=== PATIENT | female | born 1980 | race Caucasian/White ===

== ENCOUNTER 2016-11-18 04:01 | Emergency (ER) | payer BC, OTHER ==
--- NOTE | 2016-11-18 06:20 | ER Document Report ---
ED GI/ - General Time seen by provider: 07:45 Mode of Arrival: Ambulatory Information source: Patient TRAVEL OUTSIDE OF THE [place] IN LAST 30 DAYS: No - HPI Patient complains to provider of: Flank pain, Vomiting Onset: Other - see HPI note Associated symptoms: Nausea, Urinary retention, Vomiting Similar symptoms previously: No Recently seen / treated by doctor: No - General Chief Complaint: Possible Kidney Stone Stated Complaint: ABDOMINAL PAIN, NAUSEA Notes: Patient is a 36-year-old female presenting to the emergency department for right flank pain. Patient states her pain started around 2200 last night. Patient states she is has a history of kidney stones, but has not had any symptoms 8 years ago when she was . Patient states she has had some urinary retention as well. Patient also has had some nausea and vomiting, but denies any diarrhea or fevers. Patient states that she does drink a lot of soda. Patient states she takes Zoloft and lisinopril. Patient's primary care physician is Ann Marie Lindo. Patient is allergic to sulfa drugs. (GRISEL GRIGSBY) - Related Data Allergies/Adverse Reactions: Sulfa (Sulfonamide Antibiotics) Allergy (Verified 11/19/16 19:33) Past Medical History - General Information source: Patient - Social History Smoking Status: Unknown if Ever Smoked Family History: None Patient has suicidal ideation: No Patient has homicidal ideation: No - Past Medical History Cardiac Medical History: Reports: Hx Hypertension Psychiatric Medical History: Reports: Hx Anxiety Past Surgical History: Reports: Hx Cholecystectomy - Immunizations Hx Diphtheria, Pertussis, Tetanus Vaccination: Yes Review of Systems - Review of Systems Constitutional: No symptoms reported EENT: No symptoms reported Cardiovascular: No symptoms reported Respiratory: No symptoms reported Gastrointestinal: See HPI, Nausea, Vomiting Genitourinary: See HPI, Flank pain, Retention Female Genitourinary: No symptoms reported Musculoskeletal: No symptoms reported Skin: No symptoms reported Hematologic/Lymphatic: No symptoms reported Neurological/Psychological: No symptoms reported -: Yes All other systems reviewed and negative Physical Exam - Vital signs Interpretation: Normal - General General appearance: Appears well, Alert In distress: Mild - HEENT Head: Normocephalic, Atraumatic Eyes: Normal Pupils: PERRL Mucous membranes: Moist - Respiratory Respiratory status: No respiratory distress Chest status: Nontender Breath sounds: Normal Chest palpation: Normal - Cardiovascular Rhythm: Regular Heart sounds: Normal auscultation Murmur: No - Abdominal Inspection: Normal Distension: No distension Bowel sounds: Normal Tenderness: Nontender Organomegaly: No organomegaly - Back Back: Normal, Tender - Right flank tenderness to palpation - Extremities General upper extremity: Normal inspection, Normal ROM, Normal strength General lower extremity: Normal inspection, Normal ROM, Normal strength - Neurological Neuro grossly intact: Yes Cognition: Normal Orientation: AAOx4 [place] Coma Scale Eye Opening: Spontaneous [place] Coma Scale Verbal: Oriented [place] Coma Scale Motor: Obeys Commands [place] Coma Scale Total: 15 Speech: Normal - Psychological Associated symptoms: Normal affect, Normal mood - Skin Skin Temperature: Warm Skin Moisture: Dry Course - Re-evaluation Re-evalutation: 11/26/16 02:35 patient presents the emergency approaching back pain. she has a long-standing history of kidney stones in this particular one fell similar. it is not the worst episode she's ever had. she has no associated vomiting or diarrhea fevers chills hypotension tachycardia or signs and sepsis. at this time she's getting treated for kidney stone close pcp follow-up and discuss reasons for you to return sooner (DESIREE SERNA) - Vital Signs Vital signs: Temp Pulse Resp BP Pulse Ox 98.6 F 81 16 127/76 H 100 11/18/16 07:55 11/18/16 10:41 11/18/16 10:41 11/18/16 10:41 11/18/16 10:41 - Laboratory Laboratory results interpreted by me: 11/18/16 06:10 Urine Blood SMALL H Discharge - Discharge Clinical Impression: acute recurrent nephrolithiasis Condition: Stable Disposition: HOME, SELF-CARE Additional Instructions: Kidney Stone You are passing or have passed a kidney stone. These stones are usually due to increased calcium or uric acid concentrations in your urine. Stones within the kidney itself are not painful. The pain occurs as the stone leaves the kidney to pass down the long tube, called the ureter, leading to the bladder. If the stone is small, it will usually pass by itself. Most patients can pass the stone at home. You will usually receive medications for pain, nausea or vomiting, and sometimes a medication to assist in passing the kidney stone. However, if the pain is very severe or if vomiting prevents you from taking oral pain medications, you may need to return for further treatment. Drink three or four quarts of fluids per day. You will be given pain medication (if needed) and urine strainers. Strain all your urine to see if the stone passes. If your doctor has asked you to bring the stone in for analysis, return with the stone once it has passed. Return if pain or vomiting become severe, if you develop a high fever, if you are unable to pass your urine, or if other unusual symptoms occur. Referrals: ANN MARIE LINDO, BIOMEDICAL EQUIPMENT SPECIALIST-C [Primary Care Provider] - (In 2-3 days return for increasing worsening or new symptoms) Scribe Attestation: 11/18/16 10:31 I personally performed the services described in the documentation reviewed the documentation recorded by my scribe in my presence and it accurately and completely records my words and actions (DESIREE SERNA) Scribe Documentation - Scribe Written by Scrjae:: Grisel Grigsby 11/18/16 12:50 acting as scribe for :: Dom
[2016-11-18 06:40] LABS: URINE BARBITURATES SCREEN NEGATIVE; URINE METHADONE SCREEN NEGATIVE; URINE OPIATES LOW NEGATIVE; URINE PHENCYCLIDINE SCREEN NEGATIVE
[2016-11-18 06:48] LABS: AMORPHOUS SEDIMENT,URINE TRACE /HPF; BILIRUBIN,URINE NEGATIVE (NEGATIVE); GLUCOSE, URINE NEGATIVE (NEGATIVE); KETONES,URINE NEGATIVE (NEGATIVE); LEUKOCYTE ESTERASE,URINE NEGATIVE (NEGATIVE); NITRITE,URINE NEGATIVE (NEGATIVE); PROTEIN,URINE NEGATIVE (NEGATIVE); URINE SPECIFIC GRAVITY 1.017; UROBILINOGEN,URINE NEGATIVE mg/dL (<2.0)
[2016-11-18 07:03] LABS: APPEARANCE,URINE SLIGHTLY-CLOUDY
[2016-11-18] MEDS ORDERED: KETOROLAC TROMETHAMINE 60 MG/2 ML SDV IM ONE (07:25)
[2016-11-18] MEDS ORDERED: OXYCODONE-ACETAMINOPHEN 5-325 MG TABLET PO ONE (07:26)
[2016-11-18] MEDS ORDERED: ONDANSETRON 4 MG TAB.RAPDIS PO ONE (10:32)
[2016-11-18 10:44] VITALS: BP 127/76
== END 2016-11-18 10:41 | disposition home or self-care (01) ==
LOC: ER 04:01
DX: N20.0 Calculus of kidney (principal); R10.9 Unspecified abdominal pain; R11.2 Nausea with vomiting, unspecified; Z79.899 Other long term (current) drug therapy
CPT/HCPCS: 99284; 96372; 81025; 81001; 80307; 74176; J1885; S0119

== ENCOUNTER 2016-11-19 17:18 | Inpatient (IN) | payer OTHER ==
[2016-11-19] MEDS ORDERED: ONDANSETRON HCL INJ/PF 4 MG/2 ML SDV IV ONE (19:38)
[2016-11-19] MEDS ORDERED: HYDROCODONE/ACETAMINOPHEN 5-325 MG TABLET PO ONE (19:39)
[2016-11-19] MEDS ORDERED: KETOROLAC TROMETHAMINE INJ/PF 30 MG/1 ML SDV IV ONE (19:39)
[2016-11-19] MEDS ORDERED: NORMAL SALINE 1000 ML 1,000 ML IV ONE (19:41)
--- NOTE | 2016-11-19 19:41 | ER Document Report ---
ED Medical Screen (RME) - General Chief Complaint: Flank Pain Stated Complaint: FEVER Mode of Arrival: Ambulatory Information source: Patient Notes: 36-year-old female who was diagnosed as kidney stone yesterday presents with complaints of fever today temp was noted to be 104.1F home noted to be febrile on arrival. Patient notes pain is much better than yesterday. Patient noted to have 1 mm nonobstructing stone on CT Urinalysis did not note any acute abnormality yesterday concerning for infectious process I have greeted and performed a rapid initial assessment of this patient. A comprehensive ED assessment and evaluation of the patient, analysis of test results and completion of the medical decision making process will be conducted by additional ED providers. PHYSICAL EXAMINATION: GENERAL: Well-appearing, well-nourished and in no acute distress. Febrile HEAD: Atraumatic, normocephalic. EYES: Pupils equal round extraocular movements intact, conjunctiva are normal. ENT: Nares patent NECK: Normal range of motion LUNGS: No respiratory distress Musculoskeletal: Normal range of motion mild right CVA tenderness NEUROLOGICAL: Normal speech, normal gait. PSYCH: Normal mood, normal affect. SKIN: Warm, Dry, normal turgor, no rashes or lesions noted. TRAVEL OUTSIDE OF THE [place] IN LAST 30 DAYS: No - Related Data Allergies/Adverse Reactions: Sulfa (Sulfonamide Antibiotics) Allergy (Verified 11/19/16 19:33) Past Medical History - Past Medical History Cardiac Medical History: Reports: Hx Hypertension Renal/ Medical History: Denies: Hx Peritoneal Dialysis Psychiatric Medical History: Reports: Hx Anxiety Past Surgical History: Reports: Hx Cholecystectomy - Immunizations Hx Diphtheria, Pertussis, Tetanus Vaccination: Yes
[2016-11-19 20:39] LABS: ABSOLUTE MONOCYTES (AUTO) 0.9 10^3/uL (0.1-1.4); ABSOLUTE NEUT (AUTO) 10.1 10^3/uL (1.7-8.2); BASOPHILS % (AUTO) 0.3 % (0-2); EOSINOPHILS % (AUTO) 0.2 % (0-6); HEMATOCRIT 39.1 % (36.0-47.0); HEMOGLOBIN 13.3 g/dL (12.0-15.5); HGB HCT DIFFERENCE 0.8; MEAN CORPUSCULAR HEMOGLOBIN 30.9 pg (27.0-33.4); MEAN CORPUSCULAR HGB CONC 34.1 g/dL (32.0-36.0); MEAN CORPUSCULAR VOLUME 91 fl (80-97); MONOCYTES % (AUTO) 7.3 % (3-13); RED BLOOD COUNT 4.31 10^6/uL (3.72-5.28); RED CELL DISTRIBUTION WIDTH 12.7 % (11.5-14.0); SEGMENTED NEUTROPHILS % (AUTO) 84.2 % (42-78); WHITE BLOOD COUNT 11.9 10^3/uL (4.0-10.5)
[2016-11-19 20:54] LABS: ALANINE AMINOTRANSFERASE 75 U/L (9-52); ALBUMIN 4.4 g/dL (3.5-5.0); ALKALINE PHOSPHATASE 71 U/L (38-126); ANION GAP 13 (5-19); ASPARTATE AMINO TRANSFERASE 44 U/L (14-36); BILIRUBIN,DIRECT 0.1 mg/dL (0.0-0.4); BILIRUBIN,TOTAL 0.8 mg/dL (0.2-1.3); BLOOD UREA NITROGEN 7 mg/dL (7-20); CALCIUM 9.1 mg/dL (8.4-10.2); CARBON DIOXIDE 26 mmol/L (22-30); CHLORIDE 99 mmol/L (98-107); CREATININE RESULT 0.64 mg/dL (0.52-1.25); GLUCOSE 102 mg/dL (75-110); POTASSIUM 3.5 mmol/L (3.6-5.0); SODIUM 137.8 mmol/L (137-145); TOTAL PROTEIN 7.5 g/dL (6.3-8.2)
--- NOTE | 2016-11-19 21:13 | ER Document Report ---
ED GI/ - General Chief Complaint: Flank Pain Stated Complaint: FEVER Mode of Arrival: Ambulatory Notes: Patient is a 36-year-old female presents emergency Department complaining of pain and fever. Right flank pain consitent with yesterday, has not gotten worse. Fever of 104 at home. Did not take any APAP or motrin, Patient was evaluated yesterday in the emergency department and was diagnosed with a right kidney stone. Patient states that she has not been able to keep down anything today and that the Percocet she has taken her was making throughout. States her pain is in her right flank radiating to the right groin. States that her urine has been dark in color when she is able to urinate. Last menstrual period was 2 weeks ago Past medical history significant for hypertension, anxiety Past surgical history significant for cholecystectomy and tubal ligation Social history significant for social tobacco and alcohol use. Denies any drug use. Allergies to sulfa. PCP: pranav resendez TRAVEL OUTSIDE OF THE [place] IN LAST 30 DAYS: No - Related Data Allergies/Adverse Reactions: Sulfa (Sulfonamide Antibiotics) Allergy (Verified 11/19/16 19:33) Past Medical History - General Information source: Patient - Social History Smoking Status: Unknown if Ever Smoked Family History: None - Past Medical History Cardiac Medical History: Reports: Hx Hypertension Renal/ Medical History: Denies: Hx Peritoneal Dialysis Psychiatric Medical History: Reports: Hx Anxiety Past Surgical History: Reports: Hx Cholecystectomy - Immunizations Hx Diphtheria, Pertussis, Tetanus Vaccination: Yes Review of Systems - Review of Systems Constitutional: See HPI Gastrointestinal: No symptoms reported Genitourinary: See HPI Female Genitourinary: No symptoms reported -: Yes All other systems reviewed and negative Physical Exam - Vital signs Vitals: Temp 97.5 F 11/20/16 01:42 - Notes Notes: PHYSICAL EXAM GENERAL: Alert, interacts well. HEAD: Normocephalic, atraumatic. EYES: Pupils equal, round, and reactive to light. Extraocular movements intact. ENT: Oral mucosa moist, tongue midline. NECK: Full range of motion. Supple. Trachea midline. LUNGS: Clear to auscultation bilaterally, no wheezes, rales, or rhonchi. No respiratory distress. HEART: Regular rate and rhythm. No murmurs, gallops, or rubs. ABDOMEN: Soft, nondistended, mild supra pubic tenderness on right. No guarding , rebound, or rigidity.. Bowel sounds present in all 4 quadrants. BACK: negative spinous process tenderness or paraspinous muscle tenderness. Positive CVA tenderness along right flank EXTREMITIES: Moves all 4 extremities spontaneously. No edema, radial and dorsalis pedis pulses 2/4 bilaterally. No cyanosis. NEUROLOGICAL: Alert and oriented x4. Normal speech. PSYCH: Normal affect, normal mood. SKIN: Warm, dry, normal turgor. No rashes or lesions noted. Course - Re-evaluation Re-evalutation: 11/19/16 21:15 Patient is a 36-year-old female who is hemodynamically stable, no acute distress and with a temp of 101.6. CT limited study done yesterday showed a 1 cm nonobstructing stone at the right kidney. At this time patient is resting comfortably. In triage, IVF were initiated, patient has received Toradol. CBC and BMP sent, awaiting UA 11/19/16 Labs reveal concern for possible complicated pyelonephritis. Repeating CT abdomen and pelvis with IV contrast. Blood cultures have been sent and Rocephin IV initiated. 11/19/16 21:52 CT the abdomen and pelvis with IV contrast reveals enhancement right upper pole parenchyma which can be consistent with pyelonephritis given 1 cm nonobstructing renal calculi. I have consulted [facility] for urology consult. They recommended that since the stone is nonobstructing to treat her for pyelonephritis assessment patient here in can follow-up with urology for stone removal. I was able to consult Dr. Josh Macias for hospital admission for complicated pyelonephritis. She'll be admitted to a telemetry bed for IV antibiotics, IV fluids, pain management and observation. At this time repeat vital signs are satting 98% on room air, heart rate of 103, blood pressure 116/ 63, temp of 97.5. There is no evidence that this patient is septic, and is appropriate for telemetry management. Discussed with patient results and plan and she is agreeable for admission. - Vital Signs Vital signs: Temp Pulse Resp BP Pulse Ox 97.5 F 11/20/16 01:42 - Laboratory Result Diagrams: 11/19/16 20:20 11/19/16 20:20 Laboratory results interpreted by me: 11/19/16 11/19/16 11/19/16 20:20 20:20 20:33 WBC 11.9 H Seg Neutrophils % 84.2 H Lymphocytes % 8.0 L Absolute Neutrophils 10.1 H Potassium 3.5 L AST 44 H ALT 75 H Urine Blood MODERATE H Ur Leukocyte Esterase TRACE H - Diagnostic Test Radiology reviewed: Image reviewed, Reports reviewed - Consults Colleen Reason for consultation: 11/20/16 01:49 hospital admission Consulted provider: will come to ER Discharge - Discharge Clinical Impression: Pyelonephritis, Renal calculus Disposition: ADMITTED INPATIENT Admitting Provider: Hospitalist - Dr. Macias Unit Admitted: Telemetry
[2016-11-19 21:19] LABS: APPEARANCE,URINE CLEAR; BILIRUBIN,URINE NEGATIVE (NEGATIVE); GLUCOSE, URINE NEGATIVE (NEGATIVE); KETONES,URINE NEGATIVE (NEGATIVE); LEUKOCYTE ESTERASE,URINE TRACE (NEGATIVE); NITRITE,URINE NEGATIVE (NEGATIVE); PROTEIN,URINE NEGATIVE (NEGATIVE); URINE SPECIFIC GRAVITY 1.004; UROBILINOGEN,URINE NEGATIVE mg/dL (<2.0)
[2016-11-19] MEDS ORDERED: CEFTRIAXONE 1 GM/D5W RTU 50 ML IV ONE (21:58)
[2016-11-19] MEDS ORDERED: MORPHINE SULFATE 10 MG/ML INJ IV ONE (23:29)
[2016-11-19] MEDS ORDERED: PROCHLORPERAZINE EDISYLATE INJ 10 MG/2 ML VIAL IV ONE (23:29)
[2016-11-20] MEDS ORDERED: OXYCODONE HCL IR 5 MG TABLET PO PRN (03:48)
[2016-11-20] MEDS ORDERED: PROMETHAZINE HCL INJ 25 MG/1 ML VIAL IV PRN (03:48)
[2016-11-20] MEDS ORDERED: ACETAMINOPHEN 325 MG TABLET PO PRN (03:48)
[2016-11-20] MEDS ORDERED: POTASSI CL 20 MEQ/50 ML RIDER 20 MEQ/50 ML RTUPB IV ONE (04:00)
--- NOTE | 2016-11-20 04:04 | PDOC H&P ---
History of Present Illness Admission Date/PCP: 11/20/16 01:42 ANN MARIE LINDO, ADRIENNE-C Patient complains of: rt flank pain, fever History of Present Illness: GILLIAN RUANO is a 36 year old female with underlying hypertension and anxiety, along with occasional urinary tract infection, discovered approximately 24 hours ago in emergency room department to have kidney stones, diagnosed for the first-time. Was reportedly discharged home with Percocet. Patient has been discussed with emergency room physician who evaluated the patient. However, despite above treatment, she's had gradually worsening combination cramping and sharp mostly right flank pain, radiating to her right groin. Increases with certain movements and deep breathing. nausea and vomiting approximately 36 hours ago today, but mostly nausea only over the last 18 hours or so. Fever to 104.0 at home. No diarrhea or dysuria. Decreased by mouth intake. Urine has been a bit darker than usual.. Laboratory results are listed in [facility] and are reviewed. X-ray summary results are listed below, with full report(s) reviewed. . 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 1 pack cigarettes Per week. Occasional alcohol , but not very much a very often. No illicit drug use. Allergies/adverse reactions are listed in [facility] and are reviewed. Home medications obtained by discussion with patient and consist of Zoloft 100 mg by mouth daily at bedtime and lisinopril 10 mg by mouth twice a day. Home medications initially autopopulated into [facility] may not accurately reflect patient's true medications, dosages, and/or frequencies. prosthetic lab technician to reconcile medications. REVIEW OF SYSTEMS: Constitutional: See history and present illness. Eyes: Instructed to wear glasses for distance, but rarely does. ENT: No swallowing problems or complaints. No hearing problems or complaints. Pulmonary: No current complaints. Cardiovascular: No current complaints, including chest pain. Gastrointestinal: See history and present illness. Skin: No current complaints, including rashes. Hematologic: Easy bruising. Neurologic: No current complaints, including numbness or tingling. Musculoskeletal: No current complaints, including painful joints. Psychiatric: Mild Anxiety Endocrine: No current complaints, including polyuria. Genitourinary: See history and present illness. PHYSICAL EXAMINATION: 5 feet 2 inches tall. 61.9 kg. BMI 25 kg/m. Blood pressure 104/77. Pulse 108 and regular. 98% saturation on room air. Respirations are 20 and unlabored. Temperature 97.5. Well-nourished well-developed female appearing approximately her stated age. Pleasant awake alert and cooperative. Appears to feel a bit under the weather, so to speak. Mildly anxious, without agitation. Female emergency room nurse Whitney is present. Female friend of patient is present; patient approves. Skin is warm and dry. No grossly obvious evidence of rash in areas of skin examined. No subcutaneous nodules palpated. ENT: Hearing grossly normal to normal conversation. Tongue midline on protrusion pink and slightly tacky. Eyes: No scleral icterus. Pupils equal and reactive to light at 4 mm. [place] conjunctivae. Neck is supple and nontender to gentle active range of motion and palpation. Midline trachea. No palpable thyroid nodule mass enlargement or tenderness. Lymphatic: No palpable cervical or clavicular nodes. Neck and lymphatic exams limited by patient body habitus. Psychiatric: Reasonable insight into acute and chronic medical issues. Oriented to time location and why here. Lungs: Auscultation reveals clear and equal breath sounds bilaterally. No use of accessory respiratory muscles. Cardiovascular: Heart regular rate and rhythm, without gallop murmur or rub. No carotid or abdominal aortic bruits. No ankle or pedal edema. Faintly palpable dorsalis pedis pulses. Abdomen: soft, slightly, distended nontender other than mild right flank discomfort to palpation, without guarding or peritoneal signs with positive bowel sounds. Unable to adequately evaluate abdomen for masses or organomegaly due to distention and discomfort. Extremities: Feet are warm and dry. No calf tenderness to compression. No grossly obvious visual evidence of calf swelling. Gentle manipulation of lower extremities fails to reveal any obvious evidence of injury or instability to knees hips or ankles. Neurologic: Moves upper extremities grossly normally. Patellar reflexes absent. Absent Babinski. Light touch is intact at feet. Dorsiflexion and plantarflexion of feet 5 / 5 and symmetric. Past Medical History Cardiac Medical History: Reports: Hypertension Denies: Congestive Heart Failure, DVT, Myocardial Infarction, Hyperlipidema, Pulmonary Embolism Pulmonary Medical History: Denies: Asthma, Chronic Obstructive Pulmonary Disease (COPD), Sleep Apnea EENT Medical History: Reports: Eyes - Glasses Denies: Ears, Throat Endocrine Medical History: Denies: Diabetes Mellitus Type 1, Diabetes Mellitus Type 2, Hyperthyroidism, Hypothyroidism Renal/ Medical History: Reports: Nephrolithiasis, Other - Occasional urinary tract infection. GI Medical History: Denies: Cirrhosis, Gastroesophageal Reflux Disease, Hepatitis, Peptic Ulcer Disease Musculoskeltal Medical History: Denies: Arthritis Skin Medical History: Reports: None Denies: Eczema, Psoriasis Psychiatric Medical History: Reports: General Anxiety Disorder, Tobacco Dependency Denies: Alcohol Dependency, Depression, Substance Abuse Hematology: Reports: Other - Easy bruising Infectious Medical History: Denies: Clostridium Difficile, Hepatitis B, Hepatitis C, Methicillin- Resistant Staph Aureus Past Surgical History Past Surgical History: Reports: Cholecystectomy Social History Information Source: Patient, Emergency Med Personnel, [facility] Records Lives with: Family Smoking Status: Current Some Day Smoker Frequency of Alcohol Use: Occasional Hx Recreational Drug Use: No Drugs: None Hx Prescription Drug Abuse: No - Advance Directive Resuscitation Status: Full Code Surrogate healthcare decision maker:: Female s iron worker present at her side. Family History Family History: None Parental Family History Reviewed: Yes - father with heart trouble. Mother is healthy. Children Family History Reviewed: Yes - Children are healthy. Sibling(s) Family History Reviewed.: Yes - Sister with hyperthyroidism. Medication/Allergy Home Medications: RX: Lisinopril [Prinivil 10 mg Tablet] 10 mg PO Q12 11/20/16 RX: Sertraline HCl [Zoloft] 100 mg PO DAILY 11/20/16 Cefuroxime Axetil [Ceftin 500 mg Tablet] 500 mg PO BID #16 tablet 11/21/16 Fluconazole [Diflucan] 150 mg PO DAILY #3 tablet 11/21/16 RX: Acetaminophen [Tylenol 325 mg Tablet] 650 mg PO Q8HP PRN tablet 11/21/16 Allergies/Adverse Reactions: Sulfa (Sulfonamide Antibiotics) Allergy (Verified 11/19/16 19:33) Physical Exam Vital Signs: Temp Pulse Resp BP Pulse Ox 97.5 F 103 H 17 104/77 96 11/20/16 01:42 11/20/16 02:57 11/20/16 02:57 11/20/16 02:57 11/20/16 02:57 Results Impressions: Abdomen/Pelvis CT 11/19/16 21:52 IMPRESSION: 1. NONOBSTRUCTING CALYCEAL CALCULUS IN THE UPPER POLE OF THE RIGHT KIDNEY. THERE IS HETEROGENOUS ENHANCEMENT PATTERN IN THE PARENCHYMA OF THE UPPER POLE. DIFFERENTIAL INCLUDES REGIONAL INFARCT VERSUS PYELONEPHRITIS. GIVEN THE LOCATION ADJACENT TO THE CALYCEAL CALCULUS, INFECTION WITH PYELONEPHRITIS IS SUSPECTED. 2. NO OTHER SIGNIFICANT OR ACUTE FINDING IN THE ABDOMEN OR PELVIS ON CT SCAN WITH IV CONTRAST. Assessment & Plan - Diagnosis (1) Elevated LFTs Is this a current diagnosis for this admission?: YesPlan: Likely due to underlying infection. Follow-up chemistry. (2) Hypokalemia Is this a current diagnosis for this admission?: YesPlan: Potassium replacement. Follow-up chemistry. (3) Pyelonephritis Is this a current diagnosis for this admission?: YesPlan: Rocephin. Urine and blood cultures. I have strongly encouraged patient not to get out of bed without notifying staff , to avoid a fall with injury. Knee high SCDs for DVT prophylaxis, [along with subcutaneous Lovenox . Impression and plans were discussed with patient, who concurs. Time spent in evaluation and management of patient: 59 minutes. (4) Renal calculus Is this a current diagnosis for this admission?: YesPlan: Outpatient urology follow-up. No urology banquet set up person at our facility. (5) HTN (hypertension) Qualifiers: Hypertension type: essential hypertension Qualified Code(s): I10 - Essential (primary) hypertension Is this a current diagnosis for this admission?: YesPlan: Resume home medications as appropriate once these have been reviewed. (6) Anxiety Is this a current diagnosis for this admission?: YesPlan: Resume home medications as appropriate once these have been reviewed. - Inpatient Certification Based on my medical assessment, after consideration of the patient's comorbidities, presenting symptoms, or acuity I expect that the services needed warrant INPATIENT care.: Yes I certify that my determination is in accordance with my understanding of Medicare's requirements for reasonable and necessary INPATIENT services [42 CFR 412.3e].: Yes Medical Necessity: Failure to Improve With Outpatient Therapy, Need Close Monitoring Due to Risk of Patient Decompensation, Need For IV Fluids, Need for Pain Control, Need for IV Antibiotics, Risk of Complication if Not Cared For in Hospital Post Hospital Care: D/C or Transfer Summary
[2016-11-20] MEDS: POTASSI CL 20 MEQ/D5NS 1L 1,000 ML IV PRN ×2 (07:44→18:08)
[2016-11-20] MEDS: ENOXAPARIN SODIUM INJ 40 MG/0.4 ML DISP.SYRIN SUBCUT SCH (08:07)
[2016-11-20 10:29] LABS: ABSOLUTE LYMPHOCYTES (AUTO) 0.6 10^3/uL (0.5-4.7); ABSOLUTE MONOCYTES (AUTO) 0.7 10^3/uL (0.1-1.4); ABSOLUTE NEUT (AUTO) 6.5 10^3/uL (1.7-8.2); BASOPHILS % (AUTO) 0.3 % (0-2); EOSINOPHILS % (AUTO) 0.4 % (0-6); HEMATOCRIT 29.6 % (36.0-47.0); HGB HCT DIFFERENCE 1.6; LYMPHOCYTES % (AUTO) 7.6 % (13-45); MEAN CORPUSCULAR HEMOGLOBIN 31.5 pg (27.0-33.4); MEAN CORPUSCULAR VOLUME 90 fl (80-97); MONOCYTES % (AUTO) 8.8 % (3-13); RED BLOOD COUNT 3.29 10^6/uL (3.72-5.28); SEGMENTED NEUTROPHILS % (AUTO) 82.9 % (42-78); WHITE BLOOD COUNT 7.8 10^3/uL (4.0-10.5)
[2016-11-20] MEDS ORDERED: KETOROLAC TROMETHAMINE INJ/PF 30 MG/1 ML SDV IV PRN (10:33)
[2016-11-20 10:40] LABS: HEMOGLOBIN 10.4 g/dL (12.0-15.5)
[2016-11-20 10:48] LABS: ALANINE AMINOTRANSFERASE 47 U/L (9-52); ALKALINE PHOSPHATASE 54 U/L (38-126); ANION GAP 10 (5-19); ASPARTATE AMINO TRANSFERASE 28 U/L (14-36); BILIRUBIN,DIRECT 0.1 mg/dL (0.0-0.4); BILIRUBIN,TOTAL 0.3 mg/dL (0.2-1.3); BLOOD UREA NITROGEN 7 mg/dL (7-20); CARBON DIOXIDE 23 mmol/L (22-30); CHLORIDE 105 mmol/L (98-107); CREATININE RESULT 0.61 mg/dL (0.52-1.25); GLUCOSE 175 mg/dL (75-110); SODIUM 138.1 mmol/L (137-145); TOTAL PROTEIN 5.1 g/dL (6.3-8.2)
[2016-11-20 10:53] LABS: POTASSIUM 3.2 mmol/L (3.6-5.0)
[2016-11-20] MEDS ORDERED: SERTRALINE HCL 50 MG TABLET PO ONE (11:00)
[2016-11-20] MEDS: DOCUSATE SODIUM 100 MG CAPSULE PO SCH ×2 (11:06→17:09)
[2016-11-20] MEDS ORDERED: PROMETHAZINE HCL 25 MG SUPP.RECT PR PRN (19:04)
[2016-11-20] MEDS: LISINOPRIL 10 MG TABLET PO SCH (21:53)
[2016-11-20] MEDS ORDERED: CEFTRIAXONE 1 GM/D5W RTU 1 GM/50 ML RTUPB IV SCH (22:00)
[2016-11-21] MEDS: ENOXAPARIN SODIUM INJ 40 MG/0.4 ML DISP.SYRIN SUBCUT SCH (08:08)
[2016-11-21 08:33] VITALS: BP 139/81
[2016-11-21] MEDS ORDERED: SERTRALINE HCL 50 MG TABLET PO SCH (10:00)
[2016-11-21] MEDS: LISINOPRIL 10 MG TABLET PO SCH (11:03)
[2016-11-21] MEDS: DOCUSATE SODIUM 100 MG CAPSULE PO SCH (11:03)
--- NOTE | 2016-11-21 13:11 | PDOC DISCHARGE SUMMARY ---
General - Admit/Disc Date/PCP Admission Date/Primary Care Provider: 11/20/16 03:49 LISSETTE STALLINGS Discharge Date: 11/21/16 - Discharge Diagnosis (1) Pyelonephritis Is this a current diagnosis for this admission?: YesSummary: Patient will be transitioned to oral Ceftin 500 mg 2 times daily for the next 8 days (2) Renal calculus Is this a current diagnosis for this admission?: YesSummary: 1 cm calculi in the right renal pole. Patient will follow-up with [facility] (3) HTN (hypertension) Is this a current diagnosis for this admission?: YesSummary: Continue lisinopril patient is normotensive (4) Elevated LFTs Is this a current diagnosis for this admission?: YesSummary: Resolved secondary to sepsis (5) Hypokalemia Is this a current diagnosis for this admission?: YesSummary: Resolved (6) Anxiety Is this a current diagnosis for this admission?: YesSummary: Continuing cytolytic - Additional Information Resuscitation Status: Full Code Discharge Diet: Regular Discharge Activity: Activity As Tolerated, Balance Activity w/Rest Home Medications: Lisinopril [Prinivil 10 mg Tablet] 10 mg PO Q12 11/20/16 Sertraline HCl [Zoloft] 100 mg PO DAILY 11/20/16 Acetaminophen [Tylenol 325 mg Tablet] 650 mg PO Q8HP PRN tablet 11/21/16 Cefuroxime Axetil [Ceftin 500 mg Tablet] 500 mg PO BID #16 tablet 11/21/16 Fluconazole [Diflucan] 150 mg PO DAILY #3 tablet 11/21/16 History of Present Illness Patient complains of: Right flank pain and dysuria History of Present Illness: GILLIAN RUANO is a 36 year old emails underlying hypertension and anxiety, along with occasional urinary tract infection, discovered approximately 24 hours ago in emergency room department to have kidney stones, diagnosed with a first-time. Was reportedly discharged home with Percocet. Patient has been discussed with emergency room physician who evaluated the patient. However, despite above treatment, she's had gradually worsening combination cramping and sharp mostly right flank pain, radiating to her right groin. Increases with certain movements and deep breathing. He's had nausea and vomiting approximately 36 hours ago today, but mostly nausea over the last 18 hours or so. Fever to 104.0 at home. No diarrhea or dysuria. Hospital Course Hospital Course: Patient was admitted to the hospital service on telemetry. She was given IV hydration and IV antibiotics. She had Toradol and hydrocodone for pain. Blood cultures and urine cultures were obtained. She improved rapidly. This morning her pain is completely resolved. Blood cultures 2 remain negative. We'll transition her IV anorexics to oral Ceftin 500 mg twice daily for discharge. She will need follow-up with urology as an outpatient. Physical Exam Vital Signs: Temp Pulse Resp BP Pulse Ox 97.8 F 70 16 139/81 H 97 11/21/16 11:00 11/21/16 11:00 11/21/16 11:00 11/21/16 11:00 11/21/16 11:00 Intake & Output 11/20/16 11/21/16 11/22/16 06:59 06:59 06:59 Intake Total 30 3010 Output Total 300 500 Balance -270 2510 General appearance: PRESENT: no acute distress, well-developed, well-nourished Head exam: PRESENT: atraumatic, normocephalic Eye exam: PRESENT: conjunctiva pink, EOMI, PERRLA. ABSENT: scleral icterus Ear exam: PRESENT: normal external ear exam Mouth exam: PRESENT: moist, tongue midline Neck exam: ABSENT: carotid bruit, JVD, lymphadenopathy, thyromegaly Respiratory exam: PRESENT: clear to auscultation kacy. ABSENT: rales, rhonchi, wheezes Cardiovascular exam: PRESENT: RRR. ABSENT: diastolic murmur, rubs, systolic murmur Pulses: PRESENT: normal dorsalis pedis pul Vascular exam: PRESENT: normal capillary refill Rectal exam: PRESENT: deferred Extremities exam: PRESENT: full ROM. ABSENT: calf tenderness, clubbing, pedal edema Neurological exam: PRESENT: alert, awake, oriented to person, oriented to place , oriented to time, oriented to situation, CN II-XII grossly intact. ABSENT: motor sensory deficit Psychiatric exam: PRESENT: appropriate affect, normal mood. ABSENT: homicidal ideation, suicidal ideation Skin exam: PRESENT: dry, intact, warm. ABSENT: cyanosis, rash Results Laboratory Results: 11/20/16 09:04 11/20/16 09:04 Impressions: Abdomen/Pelvis CT 11/19/16 21:52 IMPRESSION: 1. NONOBSTRUCTING CALYCEAL CALCULUS IN THE UPPER POLE OF THE RIGHT KIDNEY. THERE IS HETEROGENOUS ENHANCEMENT PATTERN IN THE PARENCHYMA OF THE UPPER POLE. DIFFERENTIAL INCLUDES REGIONAL INFARCT VERSUS PYELONEPHRITIS. GIVEN THE LOCATION ADJACENT TO THE CALYCEAL CALCULUS, INFECTION WITH PYELONEPHRITIS IS SUSPECTED. 2. NO OTHER SIGNIFICANT OR ACUTE FINDING IN THE ABDOMEN OR PELVIS ON CT SCAN WITH IV CONTRAST. Qualifiers PATEINT BEING DISCHARGED WITH ANY OF THE FOLLOWING DIAGNOSIS?: No Plan Discharge Plan: Home with family Time Spent: Less than 30 Minutes
== END 2016-11-21 12:00 | disposition home or self-care (01) | DRG 694 ==
LOC: ER 17:18 → EH 11-20 01:42 → UNDOADMIN 11-20 01:42 → EH 11-20 03:49 → 4S 11-20 04:15
PROVIDERS: ADMIT Family Medicine; ATTEND Family Medicine
DX: N20.0 Calculus of kidney (principal); Z88.2 Allergy status to sulfonamides; I10 Essential (primary) hypertension; E87.6 Hypokalemia; F41.9 Anxiety disorder, unspecified; Z90.49 Acquired absence of other specified parts of digestive tract; Z98.51 Tubal ligation status; R79.89 Other specified abnormal findings of blood chemistry
CPT/HCPCS: 36415; 74177; 80053; 81001; 81025; 85025; 87040; 87086; 96361; 96365; 96375; 99285; J0696; J0780; J1650; J1885; J2270; J2405; J3480; J3490; J7030